=== PATIENT | male | born 1960 | race Caucasian/White ===

== ENCOUNTER 2016-10-15 14:09 | Inpatient (IN) | payer OTHER ==
[~2016-10-15] VITALS: Ht 193 cm; Wt 106.1 kg
[2016-10-21] MEDS ORDERED: TIZA2CAP3 PO (11:25)
[2016-10-21] MEDS ORDERED: HYDR-4107 PO (11:25)
[2016-10-21] MEDS ORDERED: ASPI1TAB69 PO (11:25)
[2016-10-21] MEDS ORDERED: MULT1TAB84 PO (11:27)
[2016-10-31] MEDS ORDERED: CHLORHEXIDINE GLUCONATE 4% SOLN 120 ML BTL TOP SCH (06:45)
[2016-10-31] MEDS ORDERED: INSULIN HUMAN REGULAR 1,000 UNITS/10 ML VIAL SQ PRN (06:45)
[2016-10-31] MEDS ORDERED: METOPROLOL TARTRATE 25 MG TAB PO PRN (06:45)
[2016-10-31] MEDS ORDERED: VANCOMYCIN 1000 MG/NS 250 ML (for <70 kg) IV SCH ×2 (06:45)
[2016-10-31] MEDS ORDERED: LACTATED RINGER'S 1000 ML IV SCH (06:45)
[2016-10-31] MEDS ORDERED: ceFAZolin 2 GM PREMIX 50 ML IV SCH (06:45)
[2016-10-31] MEDS ORDERED: SODIUM CHLORID 0.9% 500 ML IV SCH (06:45)
[2016-10-31 06:50] VITALS: BP 139/75; PULSE 54; RESP 18; TEMP 97.8; O2SAT 99
[2016-10-31] MEDS ORDERED: GENTAMICIN SULFATE 80 MG/2 ML VIAL ONE (07:00)
[2016-10-31] MEDS ORDERED: BUPIVACAINE/EPINEPHRINE 0.25% PF 30 ML VIAL ONE (07:00)
[2016-10-31] MEDS ORDERED: ACETAMINOPHEN 1000 MG/100 ML VIAL IV ONE (07:49)
[2016-10-31] MEDS ORDERED: MIDAZOLAM HCL 2 MG/2 ML VIAL ONE ×2 (07:50→11:59)
[2016-10-31] MEDS ORDERED: HYDROmorphone HCL PF 2 MG/ML VIAL ONE (07:50)
[2016-10-31] MEDS ORDERED: DEXAMETHASONE SOD PHOS 4 MG/ML VIAL ONE (07:50)
--- NOTE | 2016-10-31 10:41 | PD.OP ---
cc: Quincy Montana MD; Camron Montana MD Operative Report Date of Surgery: Oct 31, 2016 Preoperative Diagnosis: Herniated nucleus pulposus C5 6, left. Left cervical radiculopathy Postoperative Diagnosis: Same Procedure: Anterocervical discectomy decompression with bilateral foraminotomy, C5 6. Right anterior iliac crest bone graft Anesthesia: Gen. Surgeon: Camron Montana Marble Installer(s): FRANCISCO Martinez Operation and Findings: EBL: 50 cc INDICATIONS: This patient is a 56-year-old male with significant left arm weakness involving most of the left brachial radialis. The study shows evidence of the sequestered disc herniation to the left and into the foramen at C5 6. This patient presents for surgical treatment. NOTE: Colleen Martinez PA-C was present for the entire surgical procedure as my first front ventilator. In my medical opinion her skill and care was necessary for proper management of this patient PROCEDURE: The patient was brought to the operating room and anesthetized in the supine position. This patient was positioned supine on the radiolucent table. All pressure points were protected in the anterior cervical spine and iliac crest was scrubbed with alcohol followed by Hibiclens followed by ChloraPrep. A timeout was done and antibiotics were given within 1 hour time window. Lateral radiographic images were used identifying the proper level. A right anterior incision was made in line with skin creases. The platysma was opened in line with the incision. Deep dissection continued in the interval between the carotid sheath and the esophagus. The longus-coli muscles were lifted on both sides and retractors were positioned allowing good exposure. Lateral radiographic images were used to identify the proper level. [place] style interosseous pins were placed at C5 and C6 allowing exposure to that level. The microscope was rolled into the field. A total discectomy was accomplished and posterior osteophytes were removed. The posterior longitudinal ligament and annulus was taken down. Bilateral foraminotomies were accomplished. The endplates were squared up anticipating later bone grafting. A blunt probe could be placed out each foramen without evidence of nerve root compromise. The left iliac crest was approached. A small stab incision was made allowing percutaneous access to the anterior iliac crest. Multiple cores of cancellous bone were harvested and taken to the back table to be used for later bone grafting. The wound was irrigated anesthetized and closed with 4-0 Vicryl followed by Dermabond. The case was turned over to Dr. Quincy Montana for fusion and instrumentation per his dictation. FINDINGS: There was evidence of a disc herniation to the left and into the foramen affecting the exiting left C6 nerve root. At the end of the procedure there was significant decompression involving both foramen. There was no evidence of any residual nerve root compromise. No complication was noted. NOTE: This surgery was performed in 2 parts. The first part was the neurosurgical decompression performed under the variable power stereo microscope by the undersigned in addition to the bone graft. The second portion of the surgery will be performed by the orthopedic spine component by co -surgeon, Dr. Quincy Montana for the anterior fusion with interbody cage and anterior plate. The skill of 2 surgeons was necessary to perform distinct separate procedural services as dictated above and dictated in the following operative note by Dr. Quincy Montana. Camron Montana MD Oct 31, 2016 10:41
[2016-10-31] MEDS ORDERED: DO NOT ADM ANY ANTICOAGULANT DRUGS XX PRN (11:50)
[2016-10-31] MEDS ORDERED: fentaNYL CITRATE 250 MCG/5 ML AMP ONE (11:59)
[2016-10-31] MEDS ORDERED: ONDANSETRON HCL 4 MG/2 ML VIAL IV PUSH ONE (12:00)
[2016-10-31] MEDS ORDERED: NEOSTIGMINE 3 MG/3 ML SYR IV ONE (12:00)
[2016-10-31] MEDS ORDERED: NALOXONE HCL 0.4 MG/ML AMP IV ONE (12:00)
[2016-10-31] MEDS ORDERED: PHENYLEPH/NS 1000 MCG/10 ML SYR IV ONE (12:00)
[2016-10-31] MEDS ORDERED: ePHEDrine/NS 25 MG/5 ML SYR IV ONE (12:00)
[2016-10-31] MEDS ORDERED: LACTATED RINGER'S 1000 ML INJ 1,000 ML IV ONE (12:00)
[2016-10-31] MEDS ORDERED: PROPOFOL 200 MG/20 ML AMP IV ONE (12:00)
[2016-10-31] MEDS ORDERED: *morphine SULFATE 8 MG/ML PERIprocedure ONLY ONE ×2 (12:15→12:27)
[2016-10-31] MEDS ORDERED: ACETAMINOPHEN/HYDROcodone 325 MG/5 MG TAB PO PRN (13:00)
[2016-10-31 14:10] VITALS: BP 123/68; PULSE 71; RESP 16; TEMP 98.6; O2SAT 95
--- NOTE | 2016-10-31 17:08 | RADRPT ---
EXAM DATE/TIME: 10/31/2016 10:58 [facility] COMPARISON: No previous studies available for comparison. INDICATIONS : C-Spine C5-6 Fusion MEDICAL HISTORY : None. SURGICAL HISTORY : None. ENCOUNTER: Initial ACUITY: 1 day PAIN SCORE: Non-responsive. LOCATION: Bilateral C-Spine FINDINGS: 2 intraoperative spot images of the cervical spine. Anterior fusion hardware is seen at C5-6. CONCLUSION: Intraoperative spot images showing lower cervical spine hardware. Dalton Hilotn MD on October 31, 2016 at 17:05 Board Certified Radiologist. This report was verified electronically.
--- NOTE | 2016-11-02 20:15 | MP ---
cc: DHAVAL MENEZES ALBERT W. M.D. (fax to Dr. Menezes [phone]) DATE OF SURGERY 10/31/16 PREOPERATIVE DIAGNOSIS 1. C5-6 herniated nucleus pulposus. 2. Left-sided cervical radiculitis with left upper extremity weakness. POSTOPERATIVE DIAGNOSIS 1. C5-6 herniated nucleus pulposus. 2. Left-sided cervical radiculitis with left upper extremity weakness. PROCEDURE C5-6 interbody fusion; C5-6 spinet ACC anterior cervical cage; C5-6 spinet Rauscher anterior spinal instrumentation. SURGEON Ilia Montana MD SATURATION EQUIPMENT OPERATOR Helen Hartley PAC ESTIMATED BLOOD LOSS 50 mL for entire case. SPECIMEN None. COMPLICATIONS None ANESTHESIA General DRAINS None. CONDITION Stable PLAN OF ACTIVITY Per orders This surgery was done with co-surgeon, Dr. Camron Montana. Dr. Camron Montana performed a C5-6 neuro decompressive portion of the procedure with a C5-C6 anterior cervical diskectomy, anterior decompression using operative microscope and a right anterior iliac crest bone grafting. I was not present for his portion of the procedure. As a cosurgeon, I did the orthopedic stabilization and fusion portion of procedure which is well described in my operative note. My chef's assistant ABBY Garcia, was present for my portion of the entire surgical case. She was medically necessary for the case because of the complexity of the case and to facilitate the performance of the procedure. The EXHIBIT BUILDER at the back table not a skill set for this case to manipulate the instruments e.g. the multiple different types of soft tissue retractors, trial implants and permanent implants. The endplates at C5-6 were prepared for fusion. The hyaline cartilage endplates were removed using angled curettes and burs. A six 10.12 spinet ACC cage was placed in the interspace. Anterior iliac crest bone grafting was used Interbody fusion under fluoroscopic guidance. Anterior osteophyte was removed using burs and multiple different types of rongeurs. A 23-mm length spinet Rauscher plate was used for anterior spinal instrumentation. Two tacks were used for positioning of the plate. This was done under fluoroscopic guidance with appropriate position of plate. Two screws were used in vertebral body C5 and C6. Each screw was drilled. Each screw was 14 mm length, 4.0 mm in diameter, fixed angle screws. Each screw head was appropriately locked to the plate. The wound was irrigated with copious amounts of saline, wound itself was dry. The x-ray of cervical spine showed satisfactory position of bone graft at C5-6, satisfactory position of the ACC cage at c5-6 and satisfactory position of anterior spinal instrumentation at C5-6. The wound itself was dry, was irrigated with copious amounts of sterile saline antibiotic solution. The wound was closed in multiple layers using 3-0 Vicryl suture. The skin approximated with running subcuticular 4-0 Vicryl. Sterile dressings were applied. The patient tolerated the procedure well, went to recovery room in stable and satisfactory condition. The patient was placed in a [place] cervical orthosis. MD ETHEL Ndiaye/ /11:27 AM /8:02 PM
== END 2016-10-31 15:10 | disposition home or self-care (01) | DRG 473 ==
LOC: HSDI 10-31 06:09
PROVIDERS: ADMIT Orthopaedic Surgery Orthopaedic Surgery of the Spine; ATTEND Orthopaedic Surgery Orthopaedic Surgery of the Spine
PROC: 0RB30ZZ Excision of Cervical Vertebral Disc, Open Approach (ICD-10-PCS; 2016-10-31)
PROC: 0QB20ZZ Excision of Right Pelvic Bone, Open Approach (ICD-10-PCS; 2016-10-31)
PROC: 0RG1070 Fusion of Cervical Vertebral Joint with Autologous Tissue Substitute, Anterior Approach, Anterior Column, Open Approach (ICD-10-PCS; principal; 2016-10-31 08:05)
DX: M50.122 Cervical disc disorder at C5-C6 level with radiculopathy (principal); Z87.891 Personal history of nicotine dependence
CPT/HCPCS: 72040; 76000; C1713; J0131; J0690; J1100; J1170; J1580; J2250; J2270; J2310; J2370; J2405; J2710; J3010; J3370; J7050; J7120

== ENCOUNTER → 2016-10-21 | Outpatient (CLI) | payer OTHER ==
[~2016-10-21] MED LIST: ASPI1TAB69 PO; HYDR-4107 PO; IBUP-232 PO; MULT1TAB84 PO; ROBA750T PO; TIZA2CAP3 PO
[2016-10-21 12:28] LABS: AUTOMATED NEUTROPHIL # 4.9 TH/MM3 (1.8-7.7); BASOPHIL # 0.1 TH/MM3 (0-0.2); EOSINOPHIL # 0.1 TH/MM3 (0-0.4); HEMATOCRIT 45.9 % (39.0-51.0); HEMO FLAGS DIFF FINAL; LYMPH % 22.1 % (9.0-44.0); LYMPHOCYTE # 1.6 TH/MM3 (1.0-4.8); MEAN CELL VOLUME 89.5 FL (80.0-100.0); MEAN CORPUSCULAR HGB CONC 34.6 % (32.0-36.0); MONO % 7.2 % (0.0-8.0); NEUT % 67.7 % (16.0-70.0); PLATELET COUNT 183 TH/MM3 (150-450); RED BLOOD COUNT 5.13 MIL/MM3 (4.50-5.90); RED CELL DISTRIBUTION WIDTH 13.5 % (11.6-17.2); WHITE BLOOD COUNT 7.2 TH/MM3 (4.0-11.0)
[2016-10-21 12:53] LABS: BICARBONATE 30.1 MEQ/L (21.0-32.0); POTASSIUM 3.8 MEQ/L (3.5-5.1)
--- NOTE | 2016-10-22 16:57 | EKG ---
Date Performed: 10/21/2016 Time Performed: 11:02:10 PTAGE: 56 years EKG: Sinus rhythm MODERATE INTRAVENTRICULAR CONDUCTION DELAY Compared to prior tracing no significant change BORDER[facility] E ECG PREVIOUS TRACING 04/15/1998 @14.17.04 DOCTOR: Rossi Barragan Interpretating Date/Time 10/22/2016 16:55:05
== END ==
LOC: CPRE 10:35
PROVIDERS: ATTEND Orthopaedic Surgery Orthopaedic Surgery of the Spine
DX: Z01.810 Encounter for preprocedural cardiovascular examination (principal); Z01.812 Encounter for preprocedural laboratory examination; M50.322 Other cervical disc degeneration at C5-C6 level; M50.222 Other cervical disc displacement at C5-C6 level; R94.31 Abnormal electrocardiogram [ECG] [EKG]
CPT/HCPCS: 36415; 80048; 85025; 93005